=== PATIENT | male | born 2000 | race Caucasian/White ===

== ENCOUNTER 2023-01-28 19:05 | Emergency (ER) | payer BC, SELFPAY ==
[2023-01-28 19:11] VITALS: BP 165/92; PULSE 76; RESP 16; TEMP 36.8; O2SAT 100; BMI 21.8
--- NOTE | 2023-01-28 19:38 | PC.NURSE ---
Pt presents to ER for a rash present bilaterally on upper thighs, throughout his groin and trunk as well as arms Pt states he woke up this morning with a small itchy spot on his inner left thigh but it has since spread drastically Pt has taken benadryl po and applied witch walter to effected areas Per pt and his mother, it has changed from hives to a rash but is still itchy Pt denies being introduced to any new allergens and has never had such a reaction before
[2023-01-28] MEDS: DOXYCYCLINE MONOHYDRATE 100 MG CAPSULE PO (19:47)
[2023-01-28] MEDS: PREDNISONE 20 MG TABLET 40 MG PO (19:47)
[2023-01-28] MEDS: FAMOTIDINE 20 MG TABLET PO (19:47)
--- NOTE | 2023-01-29 01:23 | ED_ITS ---
HPI - Allergic Reaction General Chief complaint: Allergic Reaction Stated complaint: RASH Time Seen by Provider: 01/28/23 19:16 Source: patient Mode of arrival: walk-in Limitations: no limitations History of Present Illness HPI narrative: The patient presented to us with a rash that is all over his body mostly the posterior aspect of his back as well as his lower legs, he did mention that he had a insect bite to his left thigh earlier today He did take also some Benadryl that helped improving the rash there was no difficulty swallowing at any time there was no difficulty breathing The patient does not recall what exactly bit his thigh , but he denies any fever or chills and he did mention that [place] in [place] Related Data Home Medications Medication Instructions Recorded Confirmed No Known Home Medications 01/28/23 01/28/23 Previous Rx's Medication Instructions Recorded diphenhydramine HCl 25 mg capsule 25 mg PO Q8H PRN itching #10 caps 01/28/23 (Benadryl) doxycycline monohydrate 100 mg 100 mg PO BID 7 days #14 caps 01/28/23 capsule famotidine 20 mg tablet (Pepcid) 20 mg PO BID #10 tabs 01/28/23 prednisone 50 mg tablet 50 mg PO DAILY 3 days #3 tabs 01/28/23 Allergies Allergy/AdvReac Type Severity Reaction Status Date / Time No Known Drug Allergies Allergy Verified 01/28/23 19:16 Review of Systems ROS Status of ROS 10 or more systems reviewed and unremarkable except as noted in history and below Exam Narrative Exam Narrative: Nurses notes and vital signs reviewed and patient is not hypoxic. General: Well-appearing and in no apparent distress. Skin: Warm, dry, no pallor noted. No rash. Head: Normocephalic, atraumatic. Neck: Supple, non-tender. Eye: Pupils are equal, round and EOMI. No scleral icterus. Ears, Nose, Mouth, and Throat: TM are clear, no nasal mucosal hypertrophy. Oral mucosa is moist, no posterior oropharynx erythema, uvula is mid-line Cardiovascular: Regular Rate and Rhythm without murmur, gallop or rub. Respiratory: No accessory muscle use or respiratory distress. Lungs are clear to auscultation, no wheezing, rales or rhonchi Chest Wall: no tenderness Back: No midline thoracic or lumbar vertebral tenderness. No CVA tenderness Musculoskeletal: normal ROM, no calf or popliteal tenderness, no lower extremity edema/swelling GI: Abdomen is soft, non-distended. Normal bowel sounds. No masses appreciated. No tenderness to palpation. No rebound, guarding, or rigidity noted. Neurological: A&O x4. No cranial nerve dysfunction observed. No truncal ataxia. Moves all extremities. Sensation intact. Psychiatric: Cooperative and interactive. Normal mood and affect. Skin examination On the medial aspect of the patient tired the patient have an area of redness, it is not target like but 2 mm papule , no abcess of fluctuation . The patient have hive-like rash on his medial aspect of the thigh and have some mild papular rash at the posterior aspect of his back Constitutional Vital Signs, click to edit/add: Last Vital Signs Temp 98.2 F 01/28/23 19:11 Pulse 76 01/28/23 19:11 Resp 16 01/28/23 19:11 BP 165/92 H 01/28/23 19:11 Pulse Ox 100 01/28/23 19:11 O2 Del Method Room Air 01/28/23 19:11 Course Vital Signs Vital signs: Vital Signs Temperature 98.2 F 01/28/23 19:11 Pulse Rate 76 01/28/23 19:11 Respiratory Rate 16 01/28/23 19:11 Blood Pressure 165/92 H 01/28/23 19:11 Pulse Oximetry 100 01/28/23 19:11 Oxygen Delivery Method Room Air 01/28/23 19:11 Temperature 98.2 F 01/28/23 19:11 Pulse Rate 76 01/28/23 19:11 Respiratory Rate 16 01/28/23 19:11 Blood Pressure 165/92 H 01/28/23 19:11 Pulse Oximetry 100 01/28/23 19:11 Oxygen Delivery Method Room Air 01/28/23 19:11 MDM - Allergic Reaction MDM Narrative Medical decision making narrative: The patient insect bite on the medial aspect of the thighs seem to be the trigger for all of this reaction although the patient did mention that at the end The patient was treated before arrival with Benadryl that helped improving his symptoms but he was treated in the ER with Pepcid and prednisone and I did start him on doxycycline to cover for possible underlying infection including Lyme disease The instruction was given to the patient and his parents as well that he is to come back to the ER in case of any new symptoms including fever or any progression of his disease, the patient also to avoid sun exposure as he is taking doxycycline and he is to follow-up with his primary care doctor within the week for further evaluation management Pepcid Benadryl and prednisone as well as doxycycline were prescribed to the patient It was noted that the patient mother called few hours after discharge saying carrol t his rash showed up in his face, there was no tongue swelling there was no difficulty breathing and the patient mother mentioned that she will give him some Benadryl in case of no improvement she will be coming to the ER The patient is to follow up with primary care physician in next 2-3 days or to return to the emergency department should any of the signs or symptoms worsen or new symptoms develop. The patient agrees with the following Diagnosis and Treatment plan and the patient will be discharged home. Discharge Plan Discharge Chief Complaint: Allergic Reaction Clinical Impression: Rash Patient Disposition: Home, Self-Care Time of Disposition Decision: 20:16 Condition: Good Mode of Transportation: Private Vehicle Prescriptions / Home Meds: New prednisone 50 mg tablet 50 mg PO DAILY 3 Days Qty: 3 0RF doxycycline monohydrate 100 mg capsule 100 mg PO BID 7 Days Qty: 14 0RF diphenhydramine HCl [Benadryl] 25 mg capsule 25 mg PO Q8H PRN (Reason: itching) Qty: 10 0RF famotidine [Pepcid] 20 mg tablet 20 mg PO BID Qty: 10 0RF No Action No Known Home Medications Instructions: Acute Rash (ED) Stand Alone Forms: Portal Instructions Referrals: Roderick Amador MD [Primary Care Provider] - 1 week Discharge Date/Time: 01/28/23 20:28
== END 2023-01-28 20:28 | disposition home or self-care (01) ==
PROVIDERS: Emergency Provider Emergency Medicine; PCP Family Medicine
DX: R21 Rash and other nonspecific skin eruption (principal)
CPT/HCPCS: 99283

== ENCOUNTER 2023-03-12 13:33 | Outpatient (OUT) | payer BC, SELFPAY | END 2023-03-12 13:34 | disposition home or self-care (01) | LOC: PST 13:33 | PROVIDERS: PCP Family Medicine; Visit Provider Surgery | DX: Z01.818 Encounter for other preprocedural examination (principal); K62.5 Hemorrhage of anus and rectum ==

== ENCOUNTER 2023-03-21 09:08 | Day surgery (SDC) | payer BC, SELFPAY ==
--- NOTE | 2023-03-21 | OP_ITS ---
OPERATION DATE: ??03/21/2023 PREOPERATIVE DIAGNOSIS:? Rectal bleeding. POSTOPERATIVE DIAGNOSIS:? Prominent rectal veins. PROCEDURE:? Colonoscopy to terminal ileum with random sigmoid biopsies. SURGEON:? Roel Brambila M.D. ANESTHESIA:? Monitored anesthesia care. ESTIMATED BLOOD LOSS:? Less than 1 mL. INDICATIONS AND CONSENT:? Patient is a 23-year-old male with a three month history of intermittent rectal bleeding.? Indications, risks, benefits, alternatives of proceeding with colonoscopy were explained extensively to the patient, including the risks of bleeding, colon perforation or anesthetic complications.? All of his questions were answered.? Informed consent was obtained. PROCEDURE:? Patient brought to the operating room, placed in the left lateral decubitus position.? Monitored anesthesia care was provided.? Rectal exam was performed which showed no masses or blood. ?The scope was inserted into the anal canal.? Under direct visualization was advanced.? With the aid of abdominal compression, it was advanced to the cecum where cecal markings were clearly identified.? The terminal ileum was intubated and it appeared to be normal.? Upon withdrawal of the scope, mucosal surfaces were carefully examined.? There were no mass lesions or polyps.? No inflammatory changes or ulcerations.? Random biopsies were obtained in the sigmoid colon with good hemostasis.? The scope was retroflexed in the anal canal.? There were noted to be prominent rectal veins.? No old or new bleeding.? No significant hemorrhoidal disease.? Scope was then withdrawn.? Patient tolerated procedure well, was sent to recovery room in good condition. CC:? Roderick Amador M.D. [facility]
[2023-03-21 09:23] VITALS: BP 143/94; PULSE 91; RESP 16; TEMP 36.9; O2SAT 99; BMI 22.4
[2023-03-21] MEDS: LACTATED RINGER'S SOLUTION 1,000 ML 50 ML IV (09:36)
[2023-03-21 11:08] VITALS: BP 106/55; PULSE 77; RESP 16; TEMP 36.1; O2SAT 100
[2023-03-21 11:12] VITALS: BP 106/55; PULSE 77; RESP 16; TEMP 36.1; O2SAT 100
[2023-03-21 11:27] VITALS: BP 142/78; PULSE 78; RESP 16; O2SAT 98
[2023-03-21 11:42] VITALS: BP 131/89; PULSE 78; RESP 16; O2SAT 99
== END 2023-03-21 11:42 | disposition home or self-care (01) ==
PROVIDERS: PCP Family Medicine; Visit Provider Surgery
PROC: (CPT 45380; principal; 2023-03-21 08:20)
DX: K62.5 Hemorrhage of anus and rectum (principal); I87.8 Other specified disorders of veins; F17.220 Nicotine dependence, chewing tobacco, uncomplicated
CPT/HCPCS: 45380; 88305; J2704

== ENCOUNTER 2023-11-27 06:58 | Outpatient (OUT) | payer BC, SELFPAY ==
[2023-11-27 07:15] LABS: Bilirubin Urine NEGATIVE (NEGATIVE); Blood Urine MODERATE (NEGATIVE); Clarity Urine CLEAR (CLEAR); Color Urine LT. YELLOW (YELLOW); Glucose Urine UA NEGATIVE (NEGATIVE); Ketones Urine NEGATIVE (NEGATIVE); Leukocyte Esterase Urine NEGATIVE (NEGATIVE); Nitrite Urine NEGATIVE (NEGATIVE); Protein Urine NEGATIVE (NEG/TRACE); Specific Gravity Urine 1.025 (1.005-1.025); Urobilinogen Urine 0.2 EU/dL (0.2-1.0)
[2023-11-27 07:31] LABS: Bacteria Urine NONE SEEN #/HPF (NONE SEEN); WBC Urine NONE SEEN #/HPF (NONE SEEN)
[2023-11-27 07:32] LABS: Mucus Urine NONE SEEN (NONE SEEN)
[2023-11-27 07:33] LABS: Squamous Epithelial Cell Urine FEW #/LPF (NONE/RARE); Urine Culture Indicated ALREADY ORDERED
[2023-11-29 06:10] LABS: Neisseria gonorrhoeae, NAA Negative (Negative)
== END 2023-11-27 06:59 | disposition home or self-care (01) ==
LOC: LAB 07:00
PROVIDERS: PCP Family Medicine; Visit Provider Family Medicine
DX: R30.0 Dysuria (principal)
CPT/HCPCS: 81001; 87086; 87491; 87591

== ENCOUNTER 2023-12-18 08:38 | Outpatient (OUT) | payer BC, SELFPAY ==
--- NOTE | 2023-12-18 08:40 | US_ITS ---
The [address] [address] Patient Name: MILENA BOWER MRN: [id number] date: 2000 Sex: M Assigned Patient Location: US Current Patient Location: US Accession/Order Number: [id number] Exam Date: 12/18/2023 08:45 Report Date: 12/18/2023 13:48 At the request of: ROCHELLE CAGLE Procedure: US renal BI EXAM: US renal BI HISTORY: Microscopic Hematuria R31.21 COMPARISON: None. TECHNIQUE: Real-time ultrasound imaging of the kidneys and bladder Findings: The right and left kidneys measure 12.0 and 12.3 cm. There is good corticomedullary differentiation bilaterally. No renal stones or collecting system dilatation. No focal mass or perinephric fluid collection. Unremarkable bladder. Prevoid volume of 449 mL. US/US renal BI IMPRESSION: 1. Unremarkable sonographic appearance of the kidneys and bladder. Electronically authenticated by: TOSHIA FIELDS Date: 12/18/2023 13:48
== END 2023-12-18 08:39 | disposition home or self-care (01) ==
LOC: US 08:38
PROVIDERS: PCP Family Medicine; Visit Provider Nurse Practitioner Family
DX: R31.21 Asymptomatic microscopic hematuria (principal)
CPT/HCPCS: 76775

== ENCOUNTER 2024-04-22 15:02 | Outpatient (OUT) | payer BC, SELFPAY ==
[2024-04-22 15:18] LABS: Bilirubin Urine NEGATIVE (NEGATIVE); Blood Urine MODERATE (NEGATIVE); Clarity Urine CLEAR (CLEAR); Color Urine YELLOW (YELLOW); Glucose Urine UA NEGATIVE (NEGATIVE); Ketones Urine NEGATIVE (NEGATIVE); Leukocyte Esterase Urine NEGATIVE (NEGATIVE); Nitrite Urine NEGATIVE (NEGATIVE); Protein Urine 30 mg/dL (NEG/TRACE); Specific Gravity Urine >=1.030 (1.005-1.025); Urobilinogen Urine 0.2 EU/dL (0.2-1.0)
[2024-04-23 20:08] LABS: Neisseria gonorrhoeae, NAA Negative (Negative)
== END 2024-04-22 15:03 | disposition home or self-care (01) ==
LOC: LAB 15:04
PROVIDERS: PCP Family Medicine; Visit Provider Family Medicine
DX: R30.0 Dysuria (principal); R31.9 Hematuria, unspecified
CPT/HCPCS: 81003; 87086; 87491; 87591